=== PATIENT | female | born 1970 | race Caucasian/White ===

== ENCOUNTER 2020-04-29 04:54 | Day surgery (SDC) | payer OTHER ==
[2020-04-28 17:02] VITALS: BMI 27.8
[2020-04-29] MEDS ORDERED: PROPOFOL 20 ML ONE ×2 (07:34)
[2020-04-29] MEDS ORDERED: MIDAZOLAM HCL 2 MG/2 ML SINGLE DOSE VIAL ONE (07:35)
[2020-04-29] MEDS ORDERED: SUCCINYLCHOLINE CHLORIDE 200 MG/10 ML SYRINGE ONE (07:35)
[2020-04-29] MEDS ORDERED: ROCURONIUM BROMIDE 50 MG/5 ML SYRINGE ONE (07:35)
--- NOTE | 2020-04-29 09:35 | OP ---
Operative Note - Note: Operative Date: 04/29/20 Pre-Operative Diagnosis: PMB. Fibroids. Thick EE Operation: Hysteroscopy. D&C. Polypectomies. Post-Operative Diagnosis: Same as Pre-op Surgeon: Steve Chapa Anesthesiologist/UNIFIED COMMUNICATIONS ARCHITECT: Mirza Dooley Anesthesia: General Estimated Blood Loss (mls): 15 Operative Report Dictated: Yes
[2020-04-29] MEDS ORDERED: ACETAMINOPHEN 325 MG TABLET (FP) PO PRN (09:36)
[2020-04-29] MEDS ORDERED: IBUPROFEN 400 MG TABLET (FP) PO PRN (09:36)
--- NOTE | 2020-04-29 09:42 | DS ---
Physical Examination Vital Signs: Vital Signs Temperature 97.5 F L 04/29/20 07:15 Pulse Rate 81 04/29/20 07:15 Respiratory Rate 20 04/29/20 07:15 Blood Pressure 143/63 04/29/20 07:15 O2 Sat by Pulse Oximetry (%) 100 04/29/20 07:16 Discharge Summary Problems reviewed: Yes Reason For Visit: ABNORMAL UTERINE AND VAGINAL BLEEDING, UNSPECIFIED Procedures: Principal: Hysteroscopy. D&C. Polypectomies Condition: Good - Instructions Diet, Activity, Other Instructions: Dr. Chapa [employer] discharge instructions Physical activity: Resume your normal everyday activity as tolerated no heavy lifting or exercise until seen by your surgeon. You may walk unlimited amounts and climb stairs. You may resume driving the car when you feel safe and comfortable behind the wheel. Diet: There are no dietary restrictions. Eat healthy, high-fiber foods. Drink 6 to 8 glasses of liquid each day. This will assist in keeping your bowels are regular. Pain management: You may take Tylenol or acetaminophen or Ibuprofen (for example, Motrin, Advil etc.) every 6 hours as needed for pain. Call Dr. Chapa for any of the following: * Severe pain not relieved by medication * Fever of 101 or higher * Excessive bleeding or drainage on dressing Call the office at [phone] for an appointment in seven to 10 days. Disposition: HOME - Home Medications Comprehensive Discharge Medication List: Ambulatory Orders Cholecalciferol (Vitamin D3) [Vitamin D3] 2,000 unit PO DAILY 04/28/20 Hydroxychloroquine Sulfate 200 mg PO BID 04/28/20 Methimazole 25 mg PO DAILY 04/28/20 Nifedipine [Nifedipine ER] 60 mg PO DAILY 04/28/20 Norethindrone Acetate 5 mg PO DAILY 04/28/20
[2020-04-29] MEDS ORDERED: oxyCODONE HCL 5 MG TABLET PO PRN ×2 (10:17)
[2020-04-29] MEDS ORDERED: ONDANSETRON 4 MG/2 ML VIAL IVPUSH PRN (10:17)
[2020-04-29] MEDS ORDERED: LACTATED RINGERS SOLUTION 1,000 ML IV SCH (10:30)
--- NOTE | 2020-04-29 11:38 | OP ---
DATE OF OPERATION: DATE OF DICTATION: 04/29/2020 PREOPERATIVE DIAGNOSES: 1. Dysfunctional uterine bleeding, postmenopausal bleeding. 2. Uterine leiomyomata. POSTOPERATIVE DIAGNOSES: 1. Dysfunctional uterine bleeding, postmenopausal bleeding. 2. Uterine leiomyomata. 3. Multiple uterine polyps. SURGEON: Kyra Chapa MD ANESTHESIOLOGIST: Mirza Dooley MD ANESTHESIA: General with LMA. OPERATION: 1. Hysteroscopy. 2. Dilatation and curettage. 3. Polypectomies. PROCEDURE AND FINDINGS: Under light general anesthesia in the dorsal lithotomy position, patient was examined. Routine prep and drape was carried out. Bladder was catheterized of about 800 mL of urine. Following that, examination revealed uterus measuring about 12 weeks size, irregular, most likely with leiomyomata. There was a grade 2/3 cystocele noted. Cervix was grasped with a tenaculum, and mild tension was applied on the uterus. Hysteroscope was inserted without difficulties. Cavity was evaluated and was noted to be somewhat enlarged, filled with irregular polypoid structures. Endocervix was completely within normal limits. Tubal ostia were noted bilaterally. After gentle dilatation, polyp forceps were used, producing large quantity of endometrial polyps. They were sent as specimen number 1. Sharp curettage was performed, producing good amount of tissue as well, some of it of polypoid quality like in the specimen number 1. Curettage was completed when the cavity felt empty. [facility] was sent as specimen number 2. Post D&C hysteroscopy showed empty uterine cavity with surfaces oozing mildly. Blood loss was about 15 mL. Patient withstood the procedure very well, and there were no surgical or anesthesia complications. She was awakened and transferred to the PACU comfortable and stable. KYRA CHAPA MD [id number] MTDD
[2020-04-29 12:08] VITALS: PULSE 74
[2020-04-29 12:10] VITALS: BP 126/44; TEMP 98
--- NOTE | 2020-04-30 15:09 | PATH ---
Surgical Pathology Report Patient Name: CHELO DIAMOND [facility]. Rec. #: [id number] /Age/Gender: 1970 (Age: 50) / F Account: [id number] Location: [facility] SURGICAL Taken: 04/29/2020 Received: 04/29/2020 Reported: 04/30/2020 Physicians: Steve Chapa MD Specimen(s) Received A: POLYP B: ENDOMETRIAL CURETTINGS Clinical History Abnormal uterine bleeding Final Diagnosis A. POLYP, POLYPECTOMY: POLYPOID ENDOMETRIAL TISSUE SHOWING INACTIVE ENDOMETRIAL GLANDS AND DECIDUALIZED STROMA WITH FOCAL NEUTROPHILIC INFILTRATE. SEE COMMENT. B. ENDOMETRIAL CURETTINGS: ENDOMETRIAL TISSUE SHOWING INACTIVE ENDOMETRIAL GLANDS WITH DECIDUALIZED STROMA AND FOCAL NEUTROPHILIC INFILTRATE. SEE COMMENT. FEW FRAGMENTS OF ENDOCERVICAL TISSUE WITH NO SIGNIFICANT PATHOLOGIC CHANGE. Comment: Findings are suggestive of exogenous hormones effect. Clinical correlation is recommended. Electronically Signed Sridhar Montelongo M.D. Gross Description A. Received in formalin, labeled "polyp" are multiple ernst, irregular portions of soft tissue measuring 2.2 x 2.2 x 0.4 cm. in aggregate. The specimens are submitted in toto in one cassette. B. Received in formalin, labeled "endometrial curettings" are multiple ernst, irregular portions of soft tissue measuring 4 x 4 x 0.2cm in aggregate. The specimens are entirely submitted in two cassettes.
== END 2020-04-29 12:10 | disposition home or self-care (01) ==
LOC: JASU-SURG 04:54
PROVIDERS: ATTEND Specialist
PROC: 0UB98ZX Excision of Uterus, Via Natural or Artificial Opening Endoscopic, Diagnostic (ICD-10-PCS; principal; 2020-04-29 08:00)
PROC: 0UDB8ZX Extraction of Endometrium, Via Natural or Artificial Opening Endoscopic, Diagnostic (ICD-10-PCS; 2020-04-29 08:00)
DX: N93.8 Other specified abnormal uterine and vaginal bleeding (principal); N95.0 Postmenopausal bleeding; D25.9 Leiomyoma of uterus, unspecified; N84.0 Polyp of corpus uteri
CPT/HCPCS: 36415; 84703; 86850; 86900; 86901; 88305-TC; 94760